=== PATIENT | female | born 1955 | race Two or more races ===

== ENCOUNTER → 2016-11-01 | Day surgery (SDC) | payer BC, OTHER ==
[~2016-11-01] VITALS: Ht 142.2 cm; Wt 52.0 kg
[~2016-11-01] MED LIST: ACETAMINOPHEN 325 MG TABLET PO PRN; BUPIVACAINE/PF 0.25% INFIL ONE; BUPIVACAINE/PF 0.25% ONE; CEFAZOLIN 1,000 MG ONE; DEXAMETHASONE 4 MG/ML, 1ML ONE; EPINEPHRINE 1 MG/ML, 1ML INFIL ONE; EPINEPHRINE 1 MG/ML, 1ML ONE; FENTANYL PF 100 MCG/2ML IV PRN; FENTANYL PF 250 MCG/5ML ONE; KETOROLAC 30 MG/1 ML ONE; LABETALOL 5MG/ML, 20ML IV PRN; MEPERIDINE/PF 25MG/0.5ML IVPush PRN; MIDAZOLAM 1 MG/ML, 2ML ONE; MULT-658 PO; ONDANSETRON 2MG/ML, 2ML IVPush PRN; OXYcodone 5 MG/5 ML ORAL.SOL UDC PO PRN; PROMETHAZINE 25 MG/ML, 1ML IV PRN; PROPOFOL 10 MG/ML, 20ML ONE; ROCURONIUM 10 MG/ML ONE; SUCCINYLCHOLINE 20 MG/ML, 10ML ONE; morphine SULFATE 10 MG/ML, 1ML IV PRN; morphine SULFATE 10 MG/ML, 1ML IVPush PRN
[2016-11-01 10:08] VITALS: BP 145/85
[2016-11-01 10:14] VITALS: BP 145/85
[2016-11-01 10:51] LABS: ASPARTATE AMINO TRANSFERASE 21 U/L (15-37); BLOOD UREA NITROGEN 19 mg/dL (7-18)
== END ==
LOC: OUT 08:55 → MERGE 08:55
PROVIDERS: ATTEND Surgery
DX: D17.0 Benign lipomatous neoplasm of skin and subcutaneous tissue of head, face and neck (principal)
CPT/HCPCS: 21552; 36415; 80053; 85025; 88304; 93005; J0171; J0330; J0690; J1100; J1885; J2704; J3010; J3490; J2250